=== PATIENT | female | born 1985 | race Caucasian/White ===

== ENCOUNTER 2019-01-12 16:51 | Emergency (ER) | payer MEDICAID ==
[~2019-01-12] VITALS: Ht 149.9 cm; Wt 44.0 kg
[2019-01-12 17:55] VITALS: Ht 149.9 cm; Wt 44.0 kg
[2019-01-12] MEDS ORDERED: ONDANSETRON 4 MG INJ IV STA (20:56)
[2019-01-12] MEDS ORDERED: SOD CHLORIDE 0.9% 1,000 ML IV ONE (21:00)
[2019-01-12] MEDS ORDERED: MECL-77 PO (22:39)
[2019-01-12] MEDS ORDERED: BEN50 PO (22:39)
--- NOTE | 2019-01-12 22:43 | ERD ---
ER Documentation Chief Complaint Chief Complaint vomiting, 8 weeks sent by pmd, lost 8 pounds in 15 daYS ROS All systems reviewed and are negative except as per history of present illness. Medications Home Meds Active Scripts Meclizine Hcl* (Meclizine Hcl*) 25 Mg Tablet, 25 MG PO Q6H PRN for nausea/vomiting, #30 TAB Prov:RANJANA MENG DO 01/12/19 Diphenhydramine Hcl* (Benadryl*) 50 Mg Cap, 50 MG PO Q6 PRN for ITCHING, #30 CAP Prov:RANJANA MENG DO 01/12/19 Allergies Allergies: Coded Allergies: No Known Allergy (Unverified , 01/12/19) PMhx/Soc Medical and Surgical Hx: pt denies Medical Hx, pt denies Surgical Hx Hx Alcohol Use: No Hx Substance Use: No Hx Tobacco Use: No Smoking Status: Never smoker Physical Exam Vitals Vital Signs Date Temp Pulse Resp B/P (MAP) Pulse Ox O2 O2 Flow FiO2 Time Delivery Rate 01/12/19 97.7 76 18 121/65 99 17:55 (83) Physical Exam Const: No acute distress Head: Atraumatic Eyes: Normal Conjunctiva ENT: Normal External Ears, Nose and Mouth. Neck: Full range of motion. No meningismus. Resp: Clear to auscultation bilaterally Cardio: Regular rate and rhythm, no murmurs Abd: Soft, non tender, non distended. Normal bowel sounds Skin: No petechiae or rashes Back: No midline or flank tenderness Ext: No cyanosis, or edema Neur: Awake and alert Psych: Normal Mood and Affect Result Diagram: 01/12/19211301/12/192113 Results 24 hrs Laboratory Tests Test 01/12/19 21:14 White Blood Count 8.8 10^3/ul Red Blood Count 4.07 10^6/ul Hemoglobin 12.5 g/dl Hematocrit 35.8 % Mean Corpuscular Volume 88.0 fl Mean Corpuscular Hemoglobin 30.7 pg Mean Corpuscular Hemoglobin Concent 34.9 g/dl Red Cell Distribution Width 11.8 % Platelet Count 227 10^3/UL Mean Platelet Volume 9.4 fl Immature Granulocytes % 0.200 % Neutrophils % 62.4 % Lymphocytes % 28.7 % Monocytes % 7.9 % Eosinophils % 0.5 % Basophils % 0.3 % Nucleated Red Blood Cells % 0.0 /100WBC Immature Granulocytes # 0.020 10^3/ul Neutrophils # 5.5 10^3/ul Lymphocytes # 2.5 10^3/ul Monocytes # 0.7 10^3/ul Eosinophils # 0.0 10^3/ul Basophils # 0.0 10^3/ul Nucleated Red Blood Cells # 0.0 10^3/ul Sodium Level 138 mmol/L Potassium Level 3.7 mmol/L Chloride Level 107 mmol/L Carbon Dioxide Level 24 mmol/L Anion Gap 7 Blood Urea Nitrogen 17 mg/dl Creatinine 0.35 mg/dl Est Glomerular Filtrat Rate mL/min > 60 mL/min Glucose Level 85 mg/dl Calcium Level 8.7 mg/dl Total Bilirubin 0.4 mg/dl Direct Bilirubin 0.00 mg/dl Indirect Bilirubin 0.4 mg/dl Aspartate Amino Transf (AST/SGOT) 16 IU/L Alanine Aminotransferase (ALT/SGPT) 21 IU/L Alkaline Phosphatase 50 IU/L Total Protein 7.2 g/dl Albumin 3.9 g/dl Globulin 3.30 g/dl Albumin/Globulin Ratio 1.18 Current Medications Medications Dose Sig/Aleida Start Time Status Last (Trade) Ordered Route PRN Stop Time Admin Dose Reason Admin Sodium 1,000 ml @ Q1H ONCE 01/12/19 DC 01/12/19 Chloride 1,000 mls/hr IV 21:00 21:15 01/12/19 21:59 Ondansetron 4 mg ONCE STAT 01/12/19 DC 01/12/19 HCl (Zofran IV 20:56 21:15 Inj) 01/12/19 20:59 Departure Diagnosis: Primary Impression: Hyperemesis gravidarum Condition: Fair Patient Instructions: Hyperemesis Gravidarum (Severe Morning Sickness) Referrals: COMMUNITY CLINICS YOU HAVE RECEIVED A MEDICAL SCREENING EXAM AND THE RESULTS INDICATE THAT YOU DO NOT HAVE A CONDITION THAT REQUIRES URGENT TREATMENT IN THE EMERGENCY DEPARTMENT. FURTHER EVALUATION AND TREATMENT OF YOUR CONDITION CAN WAIT UNTIL YOU ARE SEEN IN YOUR DOCTORS OFFICE WITHIN THE NEXT 1-2 DAYS. IT IS YOUR RESPONSIBILITY TO MAKE AN APPOINTMENT FOR FOLOW-UP CARE. IF YOU HAVE A PRIMARY DOCTOR --you should call your primary doctor and schedule an appointment IF YOU DO NOT HAVE A PRIMARY DOCTOR YOU CAN CALL OUR PHYSICIAN REFERRAL HOTLINE AT IF YOU CAN NOT AFFORD TO SEE A PHYSICIAN YOU CAN CHOSE FROM THE FOLLOWING [facility] [address] [facility] [address] [facility] [address] [facility] [address] [facility]. [facility] [address] [facility] [facility]. [address] Additional Instructions: Call your primary care doctor TOMORROW for an appointment during the next 1-2 days.See the doctor sooner or return here if your condition worsens before your appointment time. Llame al doctor MAANA y luis marlo MELCHOR PARA DENTRO DE 1-2 [place].Dgale a la secretaria que nosotros le instruimos hacer esta melchor.Avise o llame si hyde condicin se empeora antes de la melchor. Regresa aqui si peor o no mejor. RANJANA MENG DO January 12, 2019 22:43
[2019-01-13 00:20] VITALS: BP 106/55; PULSE 72; RESP 18
== END 2019-01-13 00:21 | disposition home or self-care (01) ==
LOC: FTE 16:51
DX: O21.0 Mild hyperemesis gravidarum (principal); Z3A.08 8 weeks gestation of pregnancy
CPT/HCPCS: 76801; 80053; 85025; 96361; 96374; J2405; J7030; Z7502